=== PATIENT | male | born 1980 | race Caucasian/White ===

== ENCOUNTER 2019-10-03 15:30 | Emergency (ER) | payer OTHER ==
[~2019-10-03] VITALS: Ht 182.9 cm; Wt 94.3 kg
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
--- NOTE | 2019-10-03 17:14 | NUR ---
Patient discharged to home in stable condition. Written and verbal after care instructions given. Patient verbalizes understanding of instruction.IV removed. Catheter intact and site benign. Pressure and 4x4 applied to site. No bleeding noted.
[2019-10-03 17:19] VITALS: BP 129/75
== END 2019-10-03 17:20 | disposition home or self-care (01) ==
LOC: ER 15:31
DX: T40.601A Poisoning by unspecified narcotics, accidental (unintentional), initial encounter (principal); F32.9 Major depressive disorder, single episode, unspecified; Y92.89 Other specified places as the place of occurrence of the external cause

== ENCOUNTER 2019-10-05 22:18 | Emergency (ER) | payer OTHER ==
[~2019-10-05] VITALS: Ht 177.8 cm; Wt 84.8 kg
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
[2019-10-05] MEDS ORDERED: IV NS 0.9% 1,000 ML BAG IV ONE (22:30)
--- NOTE | 2019-10-05 22:37 | NUR ---
pt ambulatory with a steady gait.
--- NOTE | 2019-10-05 22:37 | NUR ---
Patient does not wish to proceed with medical care recommended by DR. Steele. Patient given information related to possible complications, up to and including , which could occur as a result of leaving the hospital at this time. Patient verbalizes understanding of risks involved due to leaving against medical advice. Patient has signed AMA form. IV removed. Catheter intact and site benign. Pressure and 4x4 applied to site. No bleeding noted.
[2019-10-05 22:43] VITALS: BP 126/76
== END 2019-10-05 22:43 | disposition left against medical advice (07) ==
LOC: ER 22:25
DX: T43.211A Poisoning by selective serotonin and norepinephrine reuptake inhibitors, accidental (unintentional), initial encounter (principal); T43.221A Poisoning by selective serotonin reuptake inhibitors, accidental (unintentional), initial encounter; T39.1X1A Poisoning by 4-Aminophenol derivatives, accidental (unintentional), initial encounter; F32.9 Major depressive disorder, single episode, unspecified; Y92.89 Other specified places as the place of occurrence of the external cause
CPT/HCPCS: 99283; J7030

== ENCOUNTER 2020-07-13 17:56 | Emergency (ER) | payer OTHER ==
[~2020-07-13] VITALS: Ht 182.9 cm; Wt 92.1 kg
--- NOTE | 2020-07-13 18:25 | NUR ---
[employer] AT BEDSIDE TALKING TO PT.
[2020-07-13] MEDS ORDERED: ACETAMINOPHEN ES 500 MG TABLET ONE (18:31)
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
--- NOTE | 2020-07-13 18:40 | NUR ---
PT REFUSED CERVICAL COLLAR. PARKER LIGHT AWARE
[2020-07-13] MEDS: ACETAMINOPHEN 325 MG TABLET PO ONE (19:02)
--- NOTE | 2020-07-13 20:10 | NUR ---
Patient discharged to home in stable condition. Written and verbal after care instructions given. Patient verbalizes understanding of instruction.IV removed. Catheter intact and site benign. Pressure and 4x4 applied to site. No bleeding noted. Pt ambulatory with a steady gait
[2020-07-13 20:12] VITALS: BP 134/84
== END 2020-07-13 20:12 | disposition home or self-care (01) ==
LOC: ER 18:00
DX: S01.511A Laceration without foreign body of lip, initial encounter (principal); S09.8XXA Other specified injuries of head, initial encounter; T40.601A Poisoning by unspecified narcotics, accidental (unintentional), initial encounter; F17.210 Nicotine dependence, cigarettes, uncomplicated; F32.9 Major depressive disorder, single episode, unspecified; X58.XXXA Exposure to other specified factors, initial encounter; Y93.89 Activity, other specified; Y92.091 Bathroom in other non-institutional residence as the place of occurrence of the external cause; Y99.8 Other external cause status
CPT/HCPCS: 70450-TC; 70486-TC; 72125-TC